=== PATIENT | male | born 1955 | race Hispanic/Latino ===

== ENCOUNTER → 2022-10-12 | Outpatient (CLI) | payer BC | END | disposition home or self-care (01) | LOC: RAH 08:53 → EDUNIT# 09:00 | PROVIDERS: ATTEND Internal Medicine Cardiovascular Disease | DX: R94.31 Abnormal electrocardiogram [ECG] [EKG] (principal) | CPT/HCPCS: 78452; 96374; 93017; A9500 ×2 ==